=== PATIENT | female | born 1995 | race African-American/Black ===

== ENCOUNTER 2017-10-02 10:45 | Emergency (ER) | payer OTHER ==
[~2017-10-02] VITALS: Ht 165.1 cm; Wt 104.3 kg
[~2017-10-02 10:45] MED LIST: GLUCOPHAGE XR500 MG PO; LEVOTHYROXIN0.025 MG PO; PEPCID20 MG PO; PREDNISONE 10 M10 MG PO; PREDNISONE50 MG PO
[2017-10-02 10:49] VITALS: BP 154/97
[2017-10-02] MEDS ORDERED: PROZAC20 MG PO (11:07)
[2017-10-02] MEDS ORDERED: MOBIC7.5 MG PO (11:11)
[2017-10-02] MEDS ORDERED: PREDNISONE 20 M20 MG PO (11:11)
== END 2017-10-02 11:28 | disposition home or self-care (01) ==
LOC: ER 10:45
DX: G56.21 Lesion of ulnar nerve, right upper limb (principal); Z88.0 Allergy status to penicillin

== ENCOUNTER 2018-01-24 05:01 | Emergency (ER) | payer OTHER ==
[~2018-01-24] VITALS: Ht 160 cm; Wt 108.9 kg
[~2018-01-24 05:01] MED LIST changes: +MOBIC7.5 MG PO; +PREDNISONE 20 M20 MG PO; +PROZAC20 MG PO
[2018-01-24 05:09] VITALS: BP 136/76
[2018-01-24] MEDS ORDERED: PREDNISONE50 MG PO (05:24)
[2018-01-24] MEDS ORDERED: BENADRYL25 MG PO (05:24)
== END 2018-01-24 05:40 | disposition home or self-care (01) ==
LOC: ER 05:01
DX: L50.9 Urticaria, unspecified (principal); Z77.22 Contact with and (suspected) exposure to environmental tobacco smoke (acute) (chronic); Z88.0 Allergy status to penicillin

== ENCOUNTER 2018-01-26 13:20 | Emergency (ER) | payer OTHER ==
[~2018-01-26] VITALS: Ht 160 cm; Wt 104.3 kg
[~2018-01-26 13:20] MED LIST changes: +BENADRYL25 MG PO
[2018-01-26] MEDS ORDERED: PREDNISONE 20 M20 MG PO (14:10)
[2018-01-26 14:36] VITALS: BP 138/88
== END 2018-01-26 14:38 | disposition home or self-care (01) ==
LOC: ER 13:20
DX: L25.9 Unspecified contact dermatitis, unspecified cause (principal); Z77.22 Contact with and (suspected) exposure to environmental tobacco smoke (acute) (chronic); Z88.0 Allergy status to penicillin

== ENCOUNTER 2018-04-04 05:10 | Emergency (ER) | payer OTHER ==
[~2018-04-04] VITALS: Ht 160 cm; Wt 108.9 kg
[2018-04-04] MEDS ORDERED: METFORMIN HCL500 MG PO (05:30)
[2018-04-04] MEDS ORDERED: TIROSINT100 MCG PO (05:31)
[2018-04-04 05:54] LABS: CALCIUM 10.3 mg/dL (8.5-10.1); POTASSIUM 4.3 mmol/L (3.5-5.1)
[2018-04-04 06:03] LABS: URINE BILIRUBIN NEGATIVE (Negative); URINE BLOOD NEGATIVE (Negative); URINE CLARITY CLEAR; URINE COLOR YELLOW; URINE GLUCOSE-RANDOM* NEGATIVE (Negative); URINE KETONES NEGATIVE (Negative); URINE LEUKOCYTES-REFLEX NEGATIVE (Negative); URINE NITRITE-REFLEX NEGATIVE (Negative); URINE PROTEIN (DIPSTICK) NEGATIVE (Negative); URINE SPECIFIC GRAVITY 1.025 (1.005-1.035); URINE UROBILINOGEN 0.2 E.U./dl (0.2-1.0)
[2018-04-04 06:30] VITALS: BP 127/64
== END 2018-04-04 06:31 | disposition home or self-care (01) ==
LOC: ER 05:10
PROVIDERS: Emergency Medicine
DX: Z71.1 Person with feared health complaint in whom no diagnosis is made (principal); Z77.22 Contact with and (suspected) exposure to environmental tobacco smoke (acute) (chronic); Z88.0 Allergy status to penicillin

== ENCOUNTER 2021-06-22 12:57 | Emergency (ER) | payer OTHER ==
[~2021-06-22] VITALS: Ht 157.5 cm; Wt 97.5 kg
[~2021-06-22 12:57] MED LIST changes: +METFORMIN HCL500 MG PO; +TIROSINT100 MCG PO
[2021-06-22 13:07] VITALS: BP 128/85
== END 2021-06-22 14:01 | disposition home or self-care (01) ==
LOC: ER 12:57
DX: R21 Rash and other nonspecific skin eruption (principal); Z88.0 Allergy status to penicillin; Z79.899 Other long term (current) drug therapy